=== PATIENT | female | born 1985 | race Caucasian/White ===

== ENCOUNTER 2020-06-28 10:05 | Observation (INO) | payer MEDICAID ==
[~2020-06-28] VITALS: Ht 157.5 cm; Wt 62.6 kg
[~2020-06-28 10:05] MED LIST: PREN-61 PO
== END 2020-06-28 11:52 | disposition home or self-care (01) ==
LOC: LDH 10:05
PROVIDERS: ADMIT Specialist; ATTEND Specialist
DX: O36.5930 Maternal care for other known or suspected poor fetal growth, third trimester, not applicable or unspecified (principal); Z3A.36 36 weeks gestation of pregnancy
CPT/HCPCS: 59025; 76819; G0378 ×2

== ENCOUNTER 2020-07-22 06:21 | Inpatient (IN) | payer MEDICAID ==
[~2020-07-22] VITALS: Ht 157.5 cm; Wt 63.5 kg
[2020-07-22] MEDS ORDERED: LACTATED RINGERS 500 ML 500 ML IV PRN (06:45)
[2020-07-22] MEDS ORDERED: ROPIVACAINE 0.2% 100ML VIAL 100 ML EP SCH (06:45)
[2020-07-22] MEDS ORDERED: NALOXONE HCL 0.4 MG/1 ML ML IV PRN (06:45)
[2020-07-22] MEDS ORDERED: LACTATED RINGERS 1000ML 1,000 ML IV PRN (06:45)
[2020-07-22] MEDS ORDERED: EPHEDRINE SULFATE 50 MG/ML AMPULE IVP PRN (06:45)
[2020-07-22] MEDS ORDERED: OXYTOCIN-LR 20 UNITS/1000 ML 1,000 ML IV SCH (06:45)
[2020-07-22 07:13] LABS: AMPHET/METH SCREEN,URINE NEGATIVE (NEGATIVE); BARBITURATE SCREEN, URINE NEGATIVE (NEGATIVE); BENZODIAZEPINES SCREEN,URINE NEGATIVE (NEGATIVE); CANNABINOID SCREEN,URINE NEGATIVE (NEGATIVE); COCAINE SCREEN,URINE NEGATIVE (NEGATIVE); OPIATE SCREEN,URINE NEGATIVE (NEGATIVE); PHENCYCLIDINE SCREEN,URINE NEGATIVE (NEGATIVE)
[2020-07-22 07:20] LABS: HEMATOCRIT 33.8 % (36-48); MEAN CORPUSCULAR HEMOGLOBIN 31.2 pg (27.0-33.0); MEAN CORPUSCULAR HGB CONC 34.6 g/dL (32.0-36.0); MEAN CORPUSCULAR VOLUME 90.1 fL (79-99); RED BLOOD CELL COUNT(AUTO) 3.75 MIL/uL (4.00-5.50); RED CELL DISTRIBUTION WIDTH 12.8 % (11.0-15.5)
[2020-07-22 07:47] VITALS: BP 120/80
[2020-07-22 16:00] VITALS: BP 141/68
[2020-07-22] MEDS: OXYTOCIN-LR 20 UNITS/1000 ML 1,000 ML IV SCH (18:24)
[2020-07-22] MEDS ORDERED: LANOLIN 30GM OINTMENT TP PRN (18:30)
[2020-07-22] MEDS ORDERED: WITCH HAZEL 1 PAD TP PRN (18:30)
[2020-07-22] MEDS ORDERED: DIPH,PERTUSS(ACELL),TET VAC/PF 0.5 ML VIAL IM PRN (18:30)
[2020-07-22] MEDS ORDERED: BENZOCAINE/LANOLIN/ALOE VERA 60 ML AEROSOL TP PRN (18:30)
[2020-07-22] MEDS ORDERED: ACETAMINOPHEN WITH CODEINE 1 TAB TAB PO PRN (18:30)
[2020-07-22] MEDS ORDERED: ACETAMINOPHEN 325 MG TAB PO PRN (18:30)
[2020-07-22] MEDS ORDERED: MEASLES/MUMPS/RUBELLA VACCINE, LIVE 0.5 ML/VIAL SQ PRN (18:30)
[2020-07-22] MEDS: IBUPROFEN 600 MG TABLET PO PRN (19:30)
[2020-07-22 20:25] VITALS: BP 114/67
[2020-07-22] MEDS: DOCUSATE SODIUM 100 MG CAP PO SCH (20:42)
[2020-07-22] MEDS ORDERED: SUBUTEX PO (20:54)
[2020-07-22 23:07] VITALS: BP 124/58
[2020-07-23 03:30] VITALS: BP 112/55
[2020-07-23] MEDS: OXYTOCIN-LR 20 UNITS/1000 ML 1,000 ML IV SCH (04:51)
[2020-07-23] MEDS: IBUPROFEN 600 MG TABLET PO PRN ×2 (05:16→21:15)
[2020-07-23 06:12] LABS: HEPATITIS Bs ANTIGEN SCREEN P Negative (Negative)
[2020-07-23 07:52] VITALS: BP 108/70
[2020-07-23] MEDS: DOCUSATE SODIUM 100 MG CAP PO SCH ×2 (09:24→21:08)
[2020-07-23 11:49] VITALS: BP 94/65
[2020-07-23 16:03] VITALS: BP 122/78
[2020-07-23 19:30] VITALS: BP 103/77
[2020-07-23 23:10] VITALS: BP 104/58
[2020-07-24 03:04] VITALS: BP 106/61
[2020-07-24 07:15] VITALS: BP 102/66
[2020-07-24] MEDS: DOCUSATE SODIUM 100 MG CAP PO SCH (08:17)
[2020-07-24] MEDS: IBUPROFEN 600 MG TABLET PO PRN (08:17)
[2020-07-24 11:05] VITALS: BP 112/69
[2020-07-24 16:26] VITALS: BP 102/61
== END 2020-07-24 19:10 | disposition home or self-care (01) | DRG 560 ==
LOC: EDSTATUS 06:21 → LDH 06:23 → WSH 20:20
PROVIDERS: ADMIT Specialist; ATTEND Specialist
PROC: 10E0XZZ Delivery of Products of Conception, External Approach (ICD-10-PCS; principal; 2020-07-22)
PROC: 0HQ9XZZ Repair Perineum Skin, External Approach (ICD-10-PCS; 2020-07-22)
PROC: 10907ZC Drainage of Amniotic Fluid, Therapeutic from Products of Conception, Via Natural or Artificial Opening (ICD-10-PCS; 2020-07-22)
PROC: 3E0R3BZ Introduction of Anesthetic Agent into Spinal Canal, Percutaneous Approach (ICD-10-PCS; 2020-07-22)
PROC: 00HU33Z Insertion of Infusion Device into Spinal Canal, Percutaneous Approach (ICD-10-PCS; 2020-07-22)
PROC: 3E0234Z Introduction of Serum, Toxoid and Vaccine into Muscle, Percutaneous Approach (ICD-10-PCS; 2020-07-22)
PROC: 3E0134Z Introduction of Serum, Toxoid and Vaccine into Subcutaneous Tissue, Percutaneous Approach (ICD-10-PCS; 2020-07-22)
DX: O70.0 First degree perineal laceration during delivery (principal); Z23 Encounter for immunization; Z37.0 Single live birth; Z3A.40 40 weeks gestation of pregnancy
CPT/HCPCS: 36415; 80305; 85027; 86592; 86850; 86900; 86901; 87340; 96360; 96372; A4314; G0378; J2590; J2795; J7120